=== PATIENT | male | born 1955 | race Caucasian/White ===

== ENCOUNTER 2018-06-06 06:55 | Day surgery (SDC) | payer BC ==
[2018-06-06] MEDS ORDERED: FAMOTIDINE 20 MG TAB PO (07:00)
[2018-06-06] MEDS ORDERED: DIAZEPAM 5 MG TAB PO (07:00)
[2018-06-06] MEDS ORDERED: DIPHENHYDRAMINE 50 MG CAP PO (07:00)
[2018-06-06] MEDS ORDERED: SOD CHLORIDE 0.45% 1,000 ML IV (07:00)
[2018-06-06 08:47] LABS: ADD MAN DIFF? NO
[2018-06-06 08:49] LABS: BASOPHILS % 0.3 % (0.0-2.0); EOSINOPHILS # 0.1 10^3/ul (0.0-0.5); EOSINOPHILS % 1.3 % (0.0-7.0); HEMATOCRIT 33.3 % (42.0-52.0); HEMOGLOBIN 9.9 g/dl (14.0-18.0); LYMPHOCYTES # 1.2 10^3/ul (0.8-2.9); LYMPHOCYTES % 16.9 % (15.0-51.0); MEAN CORPUSCULAR HEMOGLOBIN 21.5 pg (29.0-33.0); MEAN CORPUSCULAR HGB CONC 29.7 g/dl (32.0-37.0); MEAN CORPUSCULAR VOLUME 72.2 fl (82.0-101.0); MEAN PLATELET VOLUME 11.2 fl (7.4-10.4); MONOCYTE # 0.5 10^3/ul (0.3-0.9); MONOCYTES % 7.7 % (0.0-11.0); NEUTROPHIL # 5.1 10^3/ul (1.6-7.5); NEUTROPHILS % 73.5 % (39.0-77.0); PLATELET COUNT 103 10^3/UL (140-415); RED BLOOD COUNT 4.61 10^6/ul (4.70-6.10); RED CELL DISTRIBUTION WIDTH 15.8 % (11.5-14.5)
[2018-06-06] MEDS ORDERED: IODIXANOL LOCM 100 ML BTL (08:50)
[2018-06-06] MEDS ORDERED: LIDOCAINE 1% (MDV) 20 ML INJ ×2 (08:50→09:50)
[2018-06-06 09:06] LABS: HOLD TRANSMISSIONS 1
[2018-06-06 09:22] LABS: ANION GAP 14 (8-16); BLOOD UREA NITROGEN 14 mg/dl (7-20); CALCIUM 8.8 mg/dl (8.4-10.2); CARBON DIOXIDE 26 mmol/L (21-31); CHLORIDE 106 mmol/L (97-110); CHOL/HDL RATIO 6.6 RATIO; CHOLESTEROL 180 mg/dl (100-200); CREATININE 0.99 mg/dl (0.61-1.24); GLUCOSE 108 mg/dl (70-220); HDL CHOLESTEROL 27 mg/dl (30-78); LDL CHOLESTEROL,CALCULATED 121 mg/dl; SODIUM 142 mmol/L (135-144); TRIGLYCERIDES 160 mg/dl (0-149)
[2018-06-06] MEDS ORDERED: FENTAnyl 50 MCG/ML VIAL (09:34)
[2018-06-06] MEDS ORDERED: MIDAZOLAM 1 MG/ML 2 ML INJ (09:34)
[2018-06-06 09:39] LABS: INR 0.93; PROTIME 12.5 Sec (11.9-14.9)
[2018-06-06 09:40] LABS: PARTIAL THROMBOPLASTIN TIME 33.1 Sec (25.0-35.0)
[2018-06-06] MEDS ORDERED: ACETAMINOPHEN 325 MG TAB PO (10:30)
[2018-06-06] MEDS ORDERED: AL HYDROX/MG HYDROX/SIMETH 30 ML CUP PO (10:30)
[2018-06-06] MEDS ORDERED: morphine 2 MG INJ IV (10:30)
[2018-06-06] MEDS: SOD CHLORIDE 0.9% 1,000 ML IV (11:00)
== END 2018-06-06 16:16 | disposition home or self-care (01) ==
LOC: SDS 06:55
DX: I25.709 Atherosclerosis of coronary artery bypass graft(s), unspecified, with unspecified angina pectoris (principal); I34.0 Nonrheumatic mitral (valve) insufficiency; I10 Essential (primary) hypertension; I25.2 Old myocardial infarction; R94.39 Abnormal result of other cardiovascular function study
CPT/HCPCS: 71045; 80048; 80061; 82962; 85025; 85610; 85730; 93005; 93459

== ENCOUNTER 2018-08-27 13:10 | Day surgery (SDC) | payer BC ==
[2018-08-27] MEDS ORDERED: DEXTROSE 50% 50 ML SYRINGE (14:09)
[2018-08-27] MEDS ORDERED: PROPOFOL 20 ML (14:20)
[2018-08-27] MEDS ORDERED: FENTAnyl 50 MCG/ML VIAL (14:20)
== END 2018-08-27 17:08 | disposition home or self-care (01) ==
LOC: GIL 13:10
DX: K51.90 Ulcerative colitis, unspecified, without complications (principal); K29.30 Chronic superficial gastritis without bleeding; D12.5 Benign neoplasm of sigmoid colon; K64.8 Other hemorrhoids; K31.84 Gastroparesis; I10 Essential (primary) hypertension; E11.9 Type 2 diabetes mellitus without complications
CPT/HCPCS: 43239; 82962; 88305; 88312

== ENCOUNTER 2018-11-11 22:43 | Inpatient (IN) | payer BC ==
[2018-11-12] MEDS ORDERED: ACETAMINOPHEN 325 MG TAB PO
[2018-11-12] MEDS ORDERED: HYDROCODONE/APAP (5/325) TAB PO
[2018-11-12] MEDS ORDERED: ONDANSETRON 4 MG INJ IV
[2018-11-12] MEDS ORDERED: NACL 0.9% 3 ML SYG IV
[2018-11-12] MEDS: morphine 4 MG/ML VIAL IV (00:27)
[2018-11-12] MEDS ORDERED: DEXTROSE 50% 50 ML SYRINGE IV ×2 (00:30)
[2018-11-12] MEDS ORDERED: GLUCAGON 1 MG INJ IM (00:30)
[2018-11-12] MEDS ORDERED: GLUCOSE GEL 15 GRAM TUBE PO ×2 (00:30)
[2018-11-12] MEDS ORDERED: GLUCOSE GEL 15 GRAM TUBE BUCCAL (00:30)
[2018-11-12 01:02] LABS: ADD MAN DIFF? NO
[2018-11-12 01:06] LABS: BASOPHILS % 0.5 % (0.0-2.0); EOSINOPHILS # 0.1 10^3/ul (0.0-0.5); EOSINOPHILS % 1.4 % (0.0-7.0); HEMATOCRIT 32.8 % (42.0-52.0); HEMOGLOBIN 10.2 g/dl (14.0-18.0); LYMPHOCYTES # 1.5 10^3/ul (0.8-2.9); LYMPHOCYTES % 22.2 % (15.0-51.0); MEAN CORPUSCULAR HEMOGLOBIN 22.1 pg (29.0-33.0); MEAN CORPUSCULAR HGB CONC 31.1 g/dl (32.0-37.0); MEAN CORPUSCULAR VOLUME 71.1 fl (82.0-101.0); MEAN PLATELET VOLUME 10.5 fl (7.4-10.4); MONOCYTE # 0.8 10^3/ul (0.3-0.9); NEUTROPHIL # 4.1 10^3/ul (1.6-7.5); NEUTROPHILS % 62.7 % (39.0-77.0); PLATELET COUNT 101 10^3/UL (140-415); POSITIVE DIFF @See below; RED BLOOD COUNT 4.61 10^6/ul (4.70-6.10); RED CELL DISTRIBUTION WIDTH 16.7 % (11.5-14.5)
[2018-11-12 01:06] LABS: WHITE BLOOD COUNT 6.5 10^3/ul (4.8-10.8)
[2018-11-12 01:26] LABS: ALANINE AMINOTRANSFERASE 17 IU/L (13-69); ALBUMIN 3.4 g/dl (3.3-4.9); ALKALINE PHOSPHATASE 108 IU/L (42-121); ANION GAP 13 (5-13); ASPARTATE AMINO TRANSFERASE 14 IU/L (15-46); BILIRUBIN,INDIRECT 0.2 mg/dl (0-1.1); BILIRUBIN,TOTAL 0.2 mg/dl (0.2-1.3); BLOOD UREA NITROGEN 14 mg/dl (7-20); CALCIUM 8.4 mg/dl (8.4-10.2); CARBON DIOXIDE 20 mmol/L (21-31); CHLORIDE 103 mmol/L (97-110); CREATININE 0.77 mg/dl (0.61-1.24); Estimated GFR > 60 mL/min (>60); GLUCOSE 89 mg/dl (70-220); LIPASE 156 U/L (23-300); POTASSIUM 3.2 mmol/L (3.5-5.1); SODIUM 136 mmol/L (135-144); TOTAL PROTEIN 6.8 g/dl (6.1-8.1)
[2018-11-12 01:33] LABS: HEMOGLOBIN A1C 6.1 % (0-5.9)
[2018-11-12] MEDS: ACCU-CHEK XX (01:47)
[2018-11-12] MEDS: POTASSIUM CHLORIDE (SR) 20 MEQ TAB PO (02:50)
[2018-11-12] MEDS: INSULIN ASPART [NOVOLOG] 3 ML PEN SC ×4 (08:00→21:34)
[2018-11-12] MEDS: AMLODIPINE 2.5 MG TAB PO (08:37)
[2018-11-12] MEDS: ISOSORBIDE MONONITRATE 20 MG TAB PO (08:37)
[2018-11-12] MEDS: METOPROLOL (XL) 100 MG TAB PO (08:38)
[2018-11-12] MEDS: ASPIRIN (EC) 81 MG TAB PO (08:38)
[2018-11-12] MEDS: GEMFIBROZIL 600 MG TAB PO ×2 (08:38→21:25)
[2018-11-12] MEDS ORDERED: FAMOTIDINE 20 MG INJ IV (09:00)
[2018-11-12] MEDS: METHYLPREDNISOLONE 40 MG INJ IV ×2 (13:23→21:26)
[2018-11-12] MEDS: MESALAMINE (EC) 400 MG CAP PO ×2 (16:28→21:25)
[2018-11-12] MEDS: PANTOPRAZOLE (EC) 40 MG TAB PO (17:20)
[2018-11-12] MEDS: ATORVASTATIN 20 MG TAB PO (21:25)
[2018-11-12] MEDS: HYDROCODONE/APAP (5/325) TAB PO (22:52)
[2018-11-13] MEDS: ACCU-CHEK XX (02:22)
[2018-11-13 05:26] LABS: HEMATOCRIT 31.4 % (42.0-52.0); HEMOGLOBIN 9.7 g/dl (14.0-18.0); MEAN CORPUSCULAR HEMOGLOBIN 21.8 pg (29.0-33.0); MEAN CORPUSCULAR HGB CONC 30.9 g/dl (32.0-37.0); MEAN CORPUSCULAR VOLUME 70.6 fl (82.0-101.0); MEAN PLATELET VOLUME 10.4 fl (7.4-10.4); PLATELET COUNT 229 10^3/UL (140-415); POSITIVE DIFF @See below; RED BLOOD COUNT 4.45 10^6/ul (4.70-6.10); RED CELL DISTRIBUTION WIDTH 17.1 % (11.5-14.5)
[2018-11-13 05:26] LABS: WHITE BLOOD COUNT 5.9 10^3/ul (4.8-10.8)
[2018-11-13 05:31] LABS: ADD MAN DIFF? YES
[2018-11-13 05:45] LABS: IRON 20 ug/dl (35-150)
[2018-11-13 05:50] LABS: PHOSPHORUS 2.7 mg/dl (2.5-4.9)
[2018-11-13 05:50] LABS: MAGNESIUM 1.8 mg/dl (1.7-2.5)
[2018-11-13 05:55] LABS: % IRON SATURATION 7 % SAT (22-52); TOTAL IRON BINDING CAPACITY 299 ug/dl (241-421)
[2018-11-13] MEDS: METHYLPREDNISOLONE 40 MG INJ IV ×3 (06:01→21:40)
[2018-11-13] MEDS: PANTOPRAZOLE (EC) 40 MG TAB PO ×2 (06:04→17:23)
[2018-11-13 06:11] LABS: ALANINE AMINOTRANSFERASE 18 IU/L (13-69); ALBUMIN 3.4 g/dl (3.3-4.9); ALBUMIN/GLOBULIN RATIO 1.03; ALKALINE PHOSPHATASE 110 IU/L (42-121); ANION GAP 9 (5-13); ASPARTATE AMINO TRANSFERASE 15 IU/L (15-46); BLOOD UREA NITROGEN 10 mg/dl (7-20); CARBON DIOXIDE 23 mmol/L (21-31); CHLORIDE 106 mmol/L (97-110); CREATININE 0.79 mg/dl (0.61-1.24); Estimated GFR > 60 mL/min (>60); GLUCOSE 185 mg/dl (70-220); POTASSIUM 4.2 mmol/L (3.5-5.1); SODIUM 138 mmol/L (135-144); TOTAL PROTEIN 6.7 g/dl (6.1-8.1)
[2018-11-13 06:54] LABS: ERYTHROCYTE SEDIMENTATION RATE 40 mm/Hr (0-20)
[2018-11-13 07:14] LABS: ANISOCYTOSIS 1+ (0-0); BAND NEUTROPHILS % (M) 18 % (0-4); LYMPHOCYTES #M 0.7 10^3/ul (0.8-2.9); LYMPHOCYTES % (M) 12 % (15-51); MICROCYTOSIS 1+ (0-0); MONOCYTES % (M) 1 % (0-11); MYELOCYTES % (M) 1 % (0-0); OVALOCYTES 1+ (0-0); PLATELET ESTIMATE NORMAL; POIKILOCYTOSIS 2+ (0-0); POLYCHROMASIA 1+ (0-0); REACTIVE LYMPHOCYTES #M 0.2 10^3/ul (0.0-0.0); REACTIVE LYMPHOCYTES% (M) 5 % (0-0); SEG NEUT #M 3.8 10^3/ul (1.6-7.5); SEGMENTED NEUTROPHILS (M) % 63 % (39-77); SMUDGE%M 11 % (0-0); TOXIC GRANULATION 1+ (0-0)
[2018-11-13 07:24] LABS: C-REACTIVE PROTEIN 6.8 mg/dl (0.0-0.9)
[2018-11-13 07:51] LABS: CARCINOEMBRYONIC ANTIGEN 2.2 ng/ml (0.0-5.0)
[2018-11-13] MEDS: INSULIN ASPART [NOVOLOG] 3 ML PEN SC ×4 (08:02→21:44)
[2018-11-13] MEDS: MESALAMINE (EC) 400 MG CAP PO ×3 (08:43→21:39)
[2018-11-13] MEDS: AMLODIPINE 2.5 MG TAB PO (08:44)
[2018-11-13] MEDS: ISOSORBIDE MONONITRATE 20 MG TAB PO (08:45)
[2018-11-13] MEDS: METOPROLOL (XL) 100 MG TAB PO (08:45)
[2018-11-13] MEDS: GEMFIBROZIL 600 MG TAB PO ×2 (08:45→21:40)
[2018-11-13] MEDS: ASPIRIN (EC) 81 MG TAB PO (08:45)
[2018-11-13] MEDS: ATORVASTATIN 20 MG TAB PO (21:40)
[2018-11-13] MEDS: HYDROCODONE/APAP (5/325) TAB PO (21:41)
[2018-11-13] MEDS: traZODone 50 MG TAB PO (22:37)
[2018-11-14] MEDS: ACCU-CHEK XX (02:00)
[2018-11-14 05:18] LABS: ADD MAN DIFF? NO
[2018-11-14 05:21] LABS: WHITE BLOOD COUNT 13.1 10^3/ul (4.8-10.8)
[2018-11-14 05:21] LABS: ABNORMAL IP MESSAGE 1; BASOPHILS % 0.2 % (0.0-2.0); HEMATOCRIT 30.5 % (42.0-52.0); HEMOGLOBIN 9.5 g/dl (14.0-18.0); LYMPHOCYTES # 1.2 10^3/ul (0.8-2.9); LYMPHOCYTES % 9.1 % (15.0-51.0); MEAN CORPUSCULAR HGB CONC 31.1 g/dl (32.0-37.0); MEAN CORPUSCULAR VOLUME 70.6 fl (82.0-101.0); MONOCYTE # 0.4 10^3/ul (0.3-0.9); MONOCYTES % 3.1 % (0.0-11.0); NEUTROPHIL # 11.3 10^3/ul (1.6-7.5); NEUTROPHILS % 86.2 % (39.0-77.0); PLATELET COUNT 134 10^3/UL (140-415); POSITIVE DIFF @See below; RED BLOOD COUNT 4.32 10^6/ul (4.70-6.10); RED CELL DISTRIBUTION WIDTH 17.2 % (11.5-14.5)
[2018-11-14 05:42] LABS: PHOSPHORUS 3.8 mg/dl (2.5-4.9)
[2018-11-14 06:05] LABS: ANION GAP 10 (5-13); BLOOD UREA NITROGEN 16 mg/dl (7-20); CALCIUM 9.1 mg/dl (8.4-10.2); CARBON DIOXIDE 25 mmol/L (21-31); CHLORIDE 104 mmol/L (97-110); CREATININE 0.87 mg/dl (0.61-1.24); Estimated GFR > 60 mL/min (>60); GLUCOSE 169 mg/dl (70-220); POTASSIUM 4.6 mmol/L (3.5-5.1); SODIUM 139 mmol/L (135-144)
[2018-11-14] MEDS: PANTOPRAZOLE (EC) 40 MG TAB PO ×2 (06:52→18:05)
[2018-11-14] MEDS: METHYLPREDNISOLONE 40 MG INJ IV ×2 (06:52→14:35)
[2018-11-14] MEDS: ASPIRIN (EC) 81 MG TAB PO (08:31)
[2018-11-14] MEDS: MESALAMINE (EC) 400 MG CAP PO ×2 (08:31→12:53)
[2018-11-14] MEDS: GEMFIBROZIL 600 MG TAB PO (08:31)
[2018-11-14] MEDS: INSULIN ASPART [NOVOLOG] 3 ML PEN SC ×3 (08:40→17:58)
[2018-11-14] MEDS: METOPROLOL (XL) 100 MG TAB PO ×2 (09:00→14:35)
[2018-11-14] MEDS: AMLODIPINE 2.5 MG TAB PO (10:06)
[2018-11-14 11:04] LABS: C-REACTIVE PROTEIN 2.2 mg/dl (0.0-0.9)
[2018-11-14] MEDS: ISOSORBIDE MONONITRATE 20 MG TAB PO (14:35)
== END 2018-11-14 18:25 | disposition home or self-care (01) | DRG 387 ==
LOC: 6WM 22:43 → 2NE 11-13 23:04
DX: K51.90 Ulcerative colitis, unspecified, without complications (principal); D64.9 Anemia, unspecified; E11.9 Type 2 diabetes mellitus without complications; I10 Essential (primary) hypertension; E78.5 Hyperlipidemia, unspecified; I25.10 Atherosclerotic heart disease of native coronary artery without angina pectoris; K64.9 Unspecified hemorrhoids; Z79.84 Long term (current) use of oral hypoglycemic drugs; Z79.82 Long term (current) use of aspirin; Z87.891 Personal history of nicotine dependence; Z95.1 Presence of aortocoronary bypass graft
CPT/HCPCS: 80048; 80053; 82378; 82728; 82962; 83036; 83540; 83690; 83735; 84100; 85025; 85651; 86140; 87045; 87075; 87081

== ENCOUNTER 2019-01-10 20:50 | Emergency (ER) | payer BC ==
[2019-01-10 22:50] LABS: ADD MAN DIFF? NO
[2019-01-10 22:52] LABS: WHITE BLOOD COUNT 12.8 10^3/ul (4.8-10.8)
[2019-01-10 22:52] LABS: BASOPHIL # 0.1 10^3/ul (0.0-0.1); BASOPHILS % 0.5 % (0.0-2.0); EOSINOPHILS % 0.2 % (0.0-7.0); HEMATOCRIT 39.3 % (42.0-52.0); HEMOGLOBIN 11.8 g/dl (14.0-18.0); LYMPHOCYTES # 1.2 10^3/ul (0.8-2.9); LYMPHOCYTES % 9.6 % (15.0-51.0); MEAN CORPUSCULAR HEMOGLOBIN 22.6 pg (29.0-33.0); MEAN CORPUSCULAR VOLUME 75.3 fl (82.0-101.0); MEAN PLATELET VOLUME 9.5 fl (7.4-10.4); MONOCYTE # 0.9 10^3/ul (0.3-0.9); MONOCYTES % 6.7 % (0.0-11.0); NEUTROPHIL # 10.5 10^3/ul (1.6-7.5); NEUTROPHILS % 82.3 % (39.0-77.0); PLATELET COUNT 424 10^3/UL (140-415); RED BLOOD COUNT 5.22 10^6/ul (4.70-6.10); RED CELL DISTRIBUTION WIDTH 18.2 % (11.5-14.5)
[2019-01-10] MEDS: KETOROLAC 15 MG INJ IV (22:54)
[2019-01-10] MEDS: SOD CHLORIDE 0.9% 1,000 ML IV (22:54)
[2019-01-10] MEDS: ONDANSETRON 4 MG INJ IV (22:54)
[2019-01-10 23:11] LABS: ALANINE AMINOTRANSFERASE 8 IU/L (13-69); ALBUMIN 3.7 g/dl (3.3-4.9); ALBUMIN/GLOBULIN RATIO 1.02; ALKALINE PHOSPHATASE 96 IU/L (42-121); ANION GAP 15 (5-13); ASPARTATE AMINO TRANSFERASE 14 IU/L (15-46); BILIRUBIN,INDIRECT 0.2 mg/dl (0-1.1); BILIRUBIN,TOTAL 0.2 mg/dl (0.2-1.3); BLOOD UREA NITROGEN 18 mg/dl (7-20); CALCIUM 9.3 mg/dl (8.4-10.2); CARBON DIOXIDE 26 mmol/L (21-31); CHLORIDE 102 mmol/L (97-110); CREATININE 1.28 mg/dl (0.61-1.24); Estimated GFR 57 mL/min (>60); GLUCOSE 150 mg/dl (70-220); LIPASE 25 U/L (23-300); POTASSIUM 4.3 mmol/L (3.5-5.1); SODIUM 143 mmol/L (135-144); TOTAL PROTEIN 7.3 g/dl (6.1-8.1)
[2019-01-10] MEDS: DICYCLOMINE 20 MG INJ IM (23:28)
== END 2019-01-11 01:40 | disposition home or self-care (01) ==
LOC: E/R 01-11 01:40
DX: K51.90 Ulcerative colitis, unspecified, without complications (principal); I10 Essential (primary) hypertension; E11.9 Type 2 diabetes mellitus without complications; Z79.4 Long term (current) use of insulin; Z79.82 Long term (current) use of aspirin
CPT/HCPCS: 36415; 74176; 80053; 83690; 85025; 96372; 96374; 96375; 99285-25

== ENCOUNTER 2019-01-26 13:39 | Inpatient (IN) | payer BC ==
[2019-01-26] MEDS: SOD CHLORIDE 0.9% 1,000 ML IV ×3 (14:29→18:13)
[2019-01-26] MEDS: ONDANSETRON 4 MG INJ IV (14:29)
[2019-01-26] MEDS: METHYLPREDNISOLONE 125 MG INJ IV (14:29)
[2019-01-26] MEDS: HYDROmorphONE 1 MG/ML SYG IV (14:29)
[2019-01-26 14:35] LABS: WHITE BLOOD COUNT 10.7 10^3/ul (4.8-10.8)
[2019-01-26 14:35] LABS: HEMATOCRIT 37.7 % (42.0-52.0); HEMOGLOBIN 11.5 g/dl (14.0-18.0); MEAN CORPUSCULAR HEMOGLOBIN 22.3 pg (29.0-33.0); MEAN CORPUSCULAR HGB CONC 30.5 g/dl (32.0-37.0); MEAN CORPUSCULAR VOLUME 73.1 fl (82.0-101.0); MEAN PLATELET VOLUME 8.6 fl (7.4-10.4); PLATELET COUNT 563 10^3/UL (140-415); POSITIVE DIFF @See below; RED BLOOD COUNT 5.16 10^6/ul (4.70-6.10); RED CELL DISTRIBUTION WIDTH 17.5 % (11.5-14.5)
[2019-01-26 14:40] LABS: ADD MAN DIFF? YES
[2019-01-26 14:51] LABS: ALANINE AMINOTRANSFERASE 8 IU/L (13-69); ALBUMIN 3.4 g/dl (3.3-4.9); ALBUMIN/GLOBULIN RATIO 0.91; ALKALINE PHOSPHATASE 160 IU/L (42-121); ANION GAP 9 (5-13); ASPARTATE AMINO TRANSFERASE 17 IU/L (15-46); BILIRUBIN,INDIRECT 0.3 mg/dl (0-1.1); BILIRUBIN,TOTAL 0.3 mg/dl (0.2-1.3); BLOOD UREA NITROGEN 16 mg/dl (7-20); CALCIUM 9.2 mg/dl (8.4-10.2); CARBON DIOXIDE 29 mmol/L (21-31); CHLORIDE 99 mmol/L (97-110); CREATININE 1.08 mg/dl (0.61-1.24); Estimated GFR > 60 mL/min (>60); GLUCOSE 139 mg/dl (70-220); LIPASE 20 U/L (23-300); POTASSIUM 3.8 mmol/L (3.5-5.1); SODIUM 137 mmol/L (135-144); TOTAL PROTEIN 7.1 g/dl (6.1-8.1)
[2019-01-26] MEDS: SOD CHLORIDE 0.9% 100 ML (15:06)
[2019-01-26] MEDS: IOHEXOL 300MG/ML 150 ML BTL (15:07)
[2019-01-26 15:48] LABS: ANISOCYTOSIS 1+ (0-0); BAND NEUTROPHILS #M 2.7 10^3/ul (0.0-0.6); BAND NEUTROPHILS % (M) 26 % (0-4); BASOPHIL #M 0.2 10^3/ul (0.0-0.0); BASOPHILS % (M) 2 % (0-2); EOSINOPHILS % (M) 1 % (0-7); GIANT THROMBO% (M) 1 % (0-0); LYMPHOCYTES #M 2.1 10^3/ul (0.8-2.9); LYMPHOCYTES % (M) 20 % (15-51); MICROCYTOSIS 1+ (0-0); MONOCYTE #M 0.5 10^3/ul (0.3-0.9); MONOCYTES % (M) 5 % (0-11); PLATELET ESTIMATE INCREASED; POIKILOCYTOSIS 2+ (0-0); POLYCHROMASIA 3+ (0-0); SEG NEUT #M 5.2 10^3/ul (1.6-7.5); SEGMENTED NEUTROPHILS (M) % 46 % (39-77); SMUDGE%M 6 % (0-0)
[2019-01-26] MEDS ORDERED: ONDANSETRON 4 MG INJ IV ×2 (16:30→17:00)
[2019-01-26] MEDS ORDERED: ACETAMINOPHEN 325 MG TAB PO (16:30)
[2019-01-26] MEDS: ERTAPENEM SODIUM 1 GM in SOD CHLORIDE 0.9% 100 ML IVPB (16:42)
[2019-01-26] MEDS ORDERED: NACL 0.9% 3 ML SYG IV (17:00)
[2019-01-26] MEDS ORDERED: GLUCAGON 1 MG INJ IM (18:00)
[2019-01-26] MEDS ORDERED: GLUCOSE GEL 15 GRAM TUBE PO ×2 (18:00)
[2019-01-26] MEDS ORDERED: DEXTROSE 50% 50 ML SYRINGE IV ×2 (18:00)
[2019-01-26] MEDS ORDERED: GLUCOSE GEL 15 GRAM TUBE BUCCAL (18:00)
[2019-01-26] MEDS: INSULIN ASPART [NOVOLOG] 3 ML PEN SC ×2 (18:05→21:13)
[2019-01-26] MEDS: METHYLPREDNISOLONE 40 MG INJ IV (18:18)
[2019-01-26] MEDS: ATORVASTATIN 20 MG TAB PO (21:13)
[2019-01-26] MEDS: CIPROFLOXACIN 400MG/D5W 200 ML IVPB (21:14)
[2019-01-26] MEDS: GEMFIBROZIL 600 MG TAB PO (22:17)
[2019-01-27] MEDS: ACCU-CHEK XX (02:13)
[2019-01-27] MEDS: METHYLPREDNISOLONE 40 MG INJ IV ×2 (06:07→18:22)
[2019-01-27] MEDS: PANTOPRAZOLE 40 MG INJ IV (06:10)
[2019-01-27] MEDS: ACETAMINOPHEN 325 MG TAB PO (06:11)
[2019-01-27 06:24] LABS: ADD MAN DIFF? NO
[2019-01-27 06:36] LABS: ABNORMAL IP MESSAGE 1; BASOPHILS % 0.2 % (0.0-2.0); HEMATOCRIT 32.2 % (42.0-52.0); HEMOGLOBIN 9.8 g/dl (14.0-18.0); LYMPHOCYTES # 0.5 10^3/ul (0.8-2.9); LYMPHOCYTES % 9.4 % (15.0-51.0); MEAN CORPUSCULAR HEMOGLOBIN 22.7 pg (29.0-33.0); MEAN CORPUSCULAR HGB CONC 30.4 g/dl (32.0-37.0); MEAN CORPUSCULAR VOLUME 74.5 fl (82.0-101.0); MEAN PLATELET VOLUME 9.8 fl (7.4-10.4); MONOCYTE # 0.1 10^3/ul (0.3-0.9); NEUTROPHIL # 4.3 10^3/ul (1.6-7.5); NEUTROPHILS % 87.2 % (39.0-77.0); PLATELET COUNT 328 10^3/UL (140-415); POSITIVE DIFF @See below; RED BLOOD COUNT 4.32 10^6/ul (4.70-6.10); RED CELL DISTRIBUTION WIDTH 17.5 % (11.5-14.5)
[2019-01-27 06:36] LABS: WHITE BLOOD COUNT 4.9 10^3/ul (4.8-10.8)
[2019-01-27 07:01] LABS: ALANINE AMINOTRANSFERASE 15 IU/L (13-69); ALBUMIN 2.7 g/dl (3.3-4.9); ALBUMIN/GLOBULIN RATIO 0.87; ALKALINE PHOSPHATASE 118 IU/L (42-121); ANION GAP 9 (5-13); ASPARTATE AMINO TRANSFERASE 11 IU/L (15-46); BILIRUBIN,INDIRECT 0.1 mg/dl (0-1.1); BILIRUBIN,TOTAL 0.1 mg/dl (0.2-1.3); BLOOD UREA NITROGEN 13 mg/dl (7-20); CALCIUM 8.4 mg/dl (8.4-10.2); CARBON DIOXIDE 27 mmol/L (21-31); CHLORIDE 101 mmol/L (97-110); CHOLESTEROL 118 mg/dl (100-200); CREATININE 0.72 mg/dl (0.61-1.24); Estimated GFR > 60 mL/min (>60); GLUCOSE 176 mg/dl (70-220); HDL CHOLESTEROL 29 mg/dl (30-78); LDL CHOLESTEROL,CALCULATED 70 mg/dl; POTASSIUM 4.6 mmol/L (3.5-5.1); SODIUM 137 mmol/L (135-144); TOTAL PROTEIN 5.8 g/dl (6.1-8.1); TRIGLYCERIDES 96 mg/dl (0-149)
[2019-01-27 07:19] LABS: THYROID STIMULATING HORMONE 0.131 MIU/L (0.465-4.680)
[2019-01-27 08:18] LABS: HEMOGLOBIN A1C 6.8 % (0-5.9)
[2019-01-27] MEDS: SOD CHLORIDE 0.9% 1,000 ML IV ×3 (08:40→23:58)
[2019-01-27] MEDS: INSULIN ASPART [NOVOLOG] 3 ML PEN SC ×4 (08:42→21:00)
[2019-01-27] MEDS: GEMFIBROZIL 600 MG TAB PO ×2 (08:44→21:23)
[2019-01-27] MEDS: AMLODIPINE 2.5 MG TAB PO (08:44)
[2019-01-27] MEDS: METOPROLOL (XL) 100 MG TAB PO (08:44)
[2019-01-27] MEDS: ISOSORBIDE MONONITRATE 20 MG TAB PO (08:45)
[2019-01-27] MEDS: CIPROFLOXACIN 400MG/D5W 200 ML IVPB ×2 (08:57→21:21)
[2019-01-27] MEDS: MESALAMINE (EC) 400 MG CAP PO ×3 (10:19→21:24)
[2019-01-27] MEDS: HYDROCODONE/APAP (5/325) TAB PO (15:47)
[2019-01-27] MEDS: ATORVASTATIN 20 MG TAB PO (21:23)
[2019-01-27] MEDS: HYOSCYAMINE 0.125 MG SUBL TAB SL (23:52)
[2019-01-28] MEDS: ACCU-CHEK XX (02:00)
[2019-01-28] MEDS ORDERED: VANCOMYCIN IV PER PHARMACY XX (05:00)
[2019-01-28] MEDS: PANTOPRAZOLE 40 MG INJ IV (05:26)
[2019-01-28] MEDS: METHYLPREDNISOLONE 40 MG INJ IV ×2 (05:28→18:23)
[2019-01-28] MEDS: INSULIN ASPART [NOVOLOG] 3 ML PEN SC ×4 (08:00→20:58)
[2019-01-28] MEDS: CIPROFLOXACIN 400MG/D5W 200 ML IVPB ×2 (08:28→23:21)
[2019-01-28] MEDS: ISOSORBIDE MONONITRATE 20 MG TAB PO (08:30)
[2019-01-28] MEDS: MESALAMINE (EC) 400 MG CAP PO ×3 (08:30→20:48)
[2019-01-28] MEDS: AMLODIPINE 2.5 MG TAB PO (08:31)
[2019-01-28] MEDS: GEMFIBROZIL 600 MG TAB PO ×2 (08:34→20:48)
[2019-01-28] MEDS: PREDNISOLONE ACET 1% 5 ML OPH RIGHT EYE ×2 (08:36→18:23)
[2019-01-28] MEDS: DICLOFENAC 0.1% 2.5 ML OPH RIGHT EYE ×2 (08:37→18:25)
[2019-01-28] MEDS: METOPROLOL (XL) 100 MG TAB PO (09:00)
[2019-01-28] MEDS: VANCOMYCIN HCL 1.5 GM in SOD CHLORIDE 0.9% 250 ML IVPB (09:46)
[2019-01-28 12:19] LABS: C-REACTIVE PROTEIN 4.3 mg/dl (0.0-0.9)
[2019-01-28] MEDS: [UNRECOGNIZED DRUG - OTHER] LEFT EYE (12:49)
[2019-01-28 12:56] LABS: ERYTHROCYTE SEDIMENTATION RATE 47 mm/Hr (0-20)
[2019-01-28] MEDS: SOD CHLORIDE 0.9% 1,000 ML IV (17:38)
[2019-01-28] MEDS ORDERED: VANCOMYCIN 1 GM 250 ML IVPB (19:00)
[2019-01-28] MEDS: ATORVASTATIN 20 MG TAB PO (20:48)
[2019-01-28] MEDS: MESALAMINE 4 GM/60 ML ENEMA PR (21:00)
[2019-01-28] MEDS: VANCOMYCIN 1 GM 250 ML IVPB (21:14)
[2019-01-29] MEDS: DICLOFENAC 0.1% 2.5 ML OPH RIGHT EYE ×4 (00:27→18:10)
[2019-01-29] MEDS: PREDNISOLONE ACET 1% 5 ML OPH RIGHT EYE ×4 (00:29→18:09)
[2019-01-29] MEDS: ACCU-CHEK XX (02:00)
[2019-01-29] MEDS: SOD CHLORIDE 0.9% 1,000 ML IV ×2 (06:03→20:11)
[2019-01-29] MEDS: METHYLPREDNISOLONE 40 MG INJ IV ×2 (06:04→19:37)
[2019-01-29] MEDS: PANTOPRAZOLE 40 MG INJ IV (06:04)
[2019-01-29 06:10] LABS: ADD MAN DIFF? NO
[2019-01-29 06:18] LABS: ABNORMAL IP MESSAGE 1; BASOPHILS % 0.2 % (0.0-2.0); HEMATOCRIT 30.3 % (42.0-52.0); HEMOGLOBIN 9.3 g/dl (14.0-18.0); LYMPHOCYTES # 0.4 10^3/ul (0.8-2.9); MEAN CORPUSCULAR HEMOGLOBIN 22.5 pg (29.0-33.0); MEAN CORPUSCULAR HGB CONC 30.7 g/dl (32.0-37.0); MEAN CORPUSCULAR VOLUME 73.2 fl (82.0-101.0); MEAN PLATELET VOLUME 9.4 fl (7.4-10.4); MONOCYTE # 0.1 10^3/ul (0.3-0.9); MONOCYTES % 2.4 % (0.0-11.0); NEUTROPHIL # 4.7 10^3/ul (1.6-7.5); NEUTROPHILS % 87.4 % (39.0-77.0); PLATELET COUNT 361 10^3/UL (140-415); POSITIVE DIFF @See below; RED BLOOD COUNT 4.14 10^6/ul (4.70-6.10); RED CELL DISTRIBUTION WIDTH 17.8 % (11.5-14.5)
[2019-01-29 06:18] LABS: WHITE BLOOD COUNT 5.4 10^3/ul (4.8-10.8)
[2019-01-29 06:47] LABS: ALANINE AMINOTRANSFERASE 15 IU/L (13-69); ALBUMIN 2.5 g/dl (3.3-4.9); ALBUMIN/GLOBULIN RATIO 0.89; ALKALINE PHOSPHATASE 113 IU/L (42-121); ANION GAP 7 (5-13); ASPARTATE AMINO TRANSFERASE 12 IU/L (15-46); BILIRUBIN,INDIRECT 0.2 mg/dl (0-1.1); BILIRUBIN,TOTAL 0.2 mg/dl (0.2-1.3); BLOOD UREA NITROGEN 7 mg/dl (7-20); C-REACTIVE PROTEIN 5.5 mg/dl (0.0-0.9); CALCIUM 8.3 mg/dl (8.4-10.2); CARBON DIOXIDE 26 mmol/L (21-31); CHLORIDE 104 mmol/L (97-110); CREATININE 0.74 mg/dl (0.61-1.24); Estimated GFR > 60 mL/min (>60); GLUCOSE 152 mg/dl (70-220); POTASSIUM 4.2 mmol/L (3.5-5.1); SODIUM 137 mmol/L (135-144); TOTAL PROTEIN 5.3 g/dl (6.1-8.1)
[2019-01-29] MEDS: INSULIN ASPART [NOVOLOG] 3 ML PEN SC ×4 (08:00→20:52)
[2019-01-29] MEDS: CIPROFLOXACIN 400MG/D5W 200 ML IVPB ×2 (09:26→21:15)
[2019-01-29] MEDS: MESALAMINE (EC) 400 MG CAP PO ×3 (09:33→20:53)
[2019-01-29] MEDS: GEMFIBROZIL 600 MG TAB PO ×3 (09:34→21:00)
[2019-01-29] MEDS: ISOSORBIDE MONONITRATE 20 MG TAB PO (09:35)
[2019-01-29] MEDS: AMLODIPINE 2.5 MG TAB PO (09:35)
[2019-01-29] MEDS: MESALAMINE 4 GM/60 ML ENEMA PR (09:36)
[2019-01-29] MEDS: METOPROLOL (XL) 100 MG TAB PO (09:36)
[2019-01-29 10:07] LABS: ANISOCYTOSIS 2+ (0-0); BAND NEUTROPHILS #M 0.6 10^3/ul (0.0-0.6); BAND NEUTROPHILS % (M) 12 % (0-4); BURR CELLS 1+ (0-0); ELLIPTO 1+ (0-0); ERYTHROBLAST% (NRBC) (M) 1 % (0-0); HYPOCHROMASIA 1+ (0-0); LYMPHOCYTES #M 0.2 10^3/ul (0.8-2.9); LYMPHOCYTES % (M) 5 % (15-51); MICROCYTOSIS 2+ (0-0); OVALOCYTES 1+ (0-0); PLATELET ESTIMATE NORMAL; POIKILOCYTOSIS 2+ (0-0); POLYCHROMASIA 3+ (0-0); REACTIVE LYMPHOCYTES% (M) 1 % (0-0); SEG NEUT #M 4.5 10^3/ul (1.6-7.5); SEGMENTED NEUTROPHILS (M) % 82 % (39-77); SMUDGE%M 2 % (0-0); TARGET CELLS 1+ (0-0)
[2019-01-29] MEDS: VANCOMYCIN 1 GM 250 ML IVPB (10:58)
[2019-01-29] MEDS ORDERED: PREDNISOLONE ACET 1% 5 ML OPH LEFT EYE (12:00)
[2019-01-29] MEDS: NEPAFENAC 0.3% LEFT EYE (12:51)
[2019-01-29] MEDS: PREDNISOLONE ACET 1% 5 ML OPH LEFT EYE (12:53)
[2019-01-29] MEDS: ATORVASTATIN 20 MG TAB PO (20:53)
[2019-01-30] MEDS: PREDNISOLONE ACET 1% 5 ML OPH LEFT EYE ×2 (00:04→12:20)
[2019-01-30] MEDS: DICLOFENAC 0.1% 2.5 ML OPH RIGHT EYE ×4 (00:04→17:29)
[2019-01-30] MEDS: PREDNISOLONE ACET 1% 5 ML OPH RIGHT EYE ×4 (00:04→17:28)
[2019-01-30] MEDS: ACCU-CHEK XX (02:00)
[2019-01-30] MEDS: METHYLPREDNISOLONE 40 MG INJ IV (06:06)
[2019-01-30] MEDS: PANTOPRAZOLE 40 MG INJ IV (06:06)
[2019-01-30 07:48] LABS: ADD MAN DIFF? NO
[2019-01-30 07:51] LABS: BASOPHILS % 0.1 % (0.0-2.0); HEMATOCRIT 29.1 % (42.0-52.0); HEMOGLOBIN 8.8 g/dl (14.0-18.0); LYMPHOCYTES # 0.7 10^3/ul (0.8-2.9); LYMPHOCYTES % 10.2 % (15.0-51.0); MEAN CORPUSCULAR HEMOGLOBIN 22.2 pg (29.0-33.0); MEAN CORPUSCULAR HGB CONC 30.2 g/dl (32.0-37.0); MEAN CORPUSCULAR VOLUME 73.5 fl (82.0-101.0); MEAN PLATELET VOLUME 9.2 fl (7.4-10.4); MONOCYTE # 0.3 10^3/ul (0.3-0.9); MONOCYTES % 4.6 % (0.0-11.0); NEUTROPHIL # 5.9 10^3/ul (1.6-7.5); NEUTROPHILS % 81.8 % (39.0-77.0); PLATELET COUNT 392 10^3/UL (140-415); RED BLOOD COUNT 3.96 10^6/ul (4.70-6.10); RED CELL DISTRIBUTION WIDTH 17.9 % (11.5-14.5)
[2019-01-30 07:51] LABS: WHITE BLOOD COUNT 7.2 10^3/ul (4.8-10.8)
[2019-01-30 08:11] LABS: ANION GAP 4 (5-13); BLOOD UREA NITROGEN 10 mg/dl (7-20); CALCIUM 8.1 mg/dl (8.4-10.2); CARBON DIOXIDE 26 mmol/L (21-31); CHLORIDE 107 mmol/L (97-110); CREATININE 0.74 mg/dl (0.61-1.24); Estimated GFR > 60 mL/min (>60); GLUCOSE 145 mg/dl (70-220); SODIUM 137 mmol/L (135-144)
[2019-01-30] MEDS: SOD CHLORIDE 0.9% 1,000 ML IV ×2 (08:13→10:06)
[2019-01-30] MEDS ORDERED: PATIENT'S OWN MEDICATION LEFT EYE (09:00)
[2019-01-30] MEDS: INSULIN ASPART [NOVOLOG] 3 ML PEN SC ×3 (09:07→17:29)
[2019-01-30] MEDS: CIPROFLOXACIN 400MG/D5W 200 ML IVPB (10:00)
[2019-01-30] MEDS: predniSONE 10 MG TAB PO (10:00)
[2019-01-30] MEDS: AMLODIPINE 2.5 MG TAB PO (10:01)
[2019-01-30] MEDS: MESALAMINE (EC) 400 MG CAP PO ×2 (10:01→12:21)
[2019-01-30] MEDS: ISOSORBIDE MONONITRATE 20 MG TAB PO (10:01)
[2019-01-30] MEDS: METOPROLOL (XL) 100 MG TAB PO (10:01)
[2019-01-30] MEDS: NEPAFENAC 0.3% LEFT EYE (10:02)
[2019-01-30] MEDS: MESALAMINE 4 GM/60 ML ENEMA PR (11:56)
== END 2019-01-30 20:30 | disposition home health service (06) | DRG 386 ==
LOC: E/R 13:39 → PP2 16:26
DX: K51.511 Left sided colitis with rectal bleeding (principal); R78.81 Bacteremia; D64.9 Anemia, unspecified; E11.8 Type 2 diabetes mellitus with unspecified complications; I25.10 Atherosclerotic heart disease of native coronary artery without angina pectoris; I10 Essential (primary) hypertension; Z72.0 Tobacco use
CPT/HCPCS: 36415; 74177; 80048; 80053; 80061; 82962; 83036; 83690; 83735; 84100; 84443; 85025; 85651; 86140; 87040-91; 87075; 96374; 96375; 99285-25

== ENCOUNTER 2019-02-17 06:03 | Emergency (ER) | payer BC ==
[2019-02-17] MEDS: SOD CHLORIDE 0.9% 500 ML IV (07:35)
[2019-02-17] MEDS: LIDOCAINE/MYLANTA 40 ML BTL PO (07:35)
[2019-02-17] MEDS: NYSTATIN SUSP 5 ML CUP PO (07:35)
[2019-02-17] MEDS: BELLADONNA/PHENOBARBITAL TAB PO (07:35)
[2019-02-17] MEDS: LIDOCAINE 2% VISC 15 ML CUP PO (07:36)
[2019-02-17 08:15] LABS: ADD MAN DIFF? NO
[2019-02-17 08:19] LABS: ABNORMAL IP MESSAGE 1; BASOPHILS % 0.2 % (0.0-2.0); EOSINOPHILS % 0.2 % (0.0-7.0); HEMATOCRIT 36.2 % (42.0-52.0); HEMOGLOBIN 11.2 g/dl (14.0-18.0); LYMPHOCYTES # 0.6 10^3/ul (0.8-2.9); LYMPHOCYTES % 13.8 % (15.0-51.0); MEAN CORPUSCULAR HGB CONC 30.9 g/dl (32.0-37.0); MEAN CORPUSCULAR VOLUME 74.3 fl (82.0-101.0); MONOCYTE # 0.2 10^3/ul (0.3-0.9); MONOCYTES % 5.2 % (0.0-11.0); NEUTROPHIL # 3.3 10^3/ul (1.6-7.5); NEUTROPHILS % 80.1 % (39.0-77.0); PLATELET COUNT 203 10^3/UL (140-415); POSITIVE DIFF @See below; RED BLOOD COUNT 4.87 10^6/ul (4.70-6.10); RED CELL DISTRIBUTION WIDTH 19.7 % (11.5-14.5)
[2019-02-17 08:19] LABS: WHITE BLOOD COUNT 4.1 10^3/ul (4.8-10.8)
[2019-02-17 08:37] LABS: ALANINE AMINOTRANSFERASE 45 IU/L (13-69); ALBUMIN 2.9 g/dl (3.3-4.9); ALBUMIN/GLOBULIN RATIO 1.07; ALKALINE PHOSPHATASE 108 IU/L (42-121); ANION GAP 8 (5-13); ASPARTATE AMINO TRANSFERASE 22 IU/L (15-46); BILIRUBIN,INDIRECT 0.6 mg/dl (0-1.1); BILIRUBIN,TOTAL 0.6 mg/dl (0.2-1.3); BLOOD UREA NITROGEN 29 mg/dl (7-20); CALCIUM 8.3 mg/dl (8.4-10.2); CARBON DIOXIDE 27 mmol/L (21-31); CHLORIDE 101 mmol/L (97-110); CREATININE 0.67 mg/dl (0.61-1.24); Estimated GFR > 60 mL/min (>60); GLUCOSE 100 mg/dl (70-220); LIPASE 17 U/L (23-300); SODIUM 136 mmol/L (135-144); TOTAL PROTEIN 5.6 g/dl (6.1-8.1)
[2019-02-17 08:38] LABS: INR 0.86; PROTIME 11.8 Sec (11.9-14.9); PT RATIO 0.9
[2019-02-17 08:39] LABS: PARTIAL THROMBOPLASTIN TIME 24.9 Sec (23.0-35.0)
[2019-02-17 08:47] LABS: B-TYPE NATRIURETIC PEPTIDE 279 PG/ML (0-125); TROPONIN-I < 0.012 ng/ml (0.000-0.120)
== END 2019-02-17 10:24 | disposition home or self-care (01) ==
LOC: E/R 06:03
DX: R07.9 Chest pain, unspecified (principal); I10 Essential (primary) hypertension; E86.0 Dehydration; K12.0 Recurrent oral aphthae; E11.9 Type 2 diabetes mellitus without complications; Z79.4 Long term (current) use of insulin; Z79.82 Long term (current) use of aspirin; Z95.1 Presence of aortocoronary bypass graft; Z87.891 Personal history of nicotine dependence
CPT/HCPCS: 71045; 80053; 83690; 83880; 84484; 85025; 85610; 85730; 93005; 99285-25

== ENCOUNTER 2019-03-10 01:28 | Emergency (ER) | payer BC | END 2019-03-10 03:08 | disposition home or self-care (01) | LOC: FTE 03:08 | DX: L29.9 Pruritus, unspecified (principal); I25.10 Atherosclerotic heart disease of native coronary artery without angina pectoris; Z79.4 Long term (current) use of insulin; Z79.82 Long term (current) use of aspirin; Z87.891 Personal history of nicotine dependence; Z95.1 Presence of aortocoronary bypass graft | CPT/HCPCS: 99282; Z7502 ==

== ENCOUNTER 2019-03-22 19:08 | Inpatient (IN) | payer BC ==
[2019-03-22] MEDS ORDERED: NACL 0.9% 3 ML SYG IV (22:30)
[2019-03-22] MEDS ORDERED: HYOSCYAMINE 0.125 MG SUBL TAB SL (22:30)
[2019-03-22] MEDS ORDERED: ACETAMINOPHEN 325 MG TAB PO (22:30)
[2019-03-22] MEDS ORDERED: LIDOCAINE 5% 35 GM OINT TOP (22:30)
[2019-03-22] MEDS ORDERED: ONDANSETRON 4 MG INJ IV (22:30)
[2019-03-22] MEDS ORDERED: HYDROPHILIC BASE 454 GM OINT TOP (22:30)
[2019-03-22] MEDS ORDERED: AL HYDROX/MG HYDROX/SIMETH 30 ML CUP PO (22:30)
[2019-03-22] MEDS ORDERED: DEXTROSE 50% 50 ML SYRINGE IV ×2 (23:30)
[2019-03-22] MEDS ORDERED: GLUCOSE GEL 15 GRAM TUBE PO ×2 (23:30)
[2019-03-22] MEDS ORDERED: AQUAPHOR 52.5 GM OINT TOP (23:30)
[2019-03-22] MEDS ORDERED: GLUCAGON 1 MG INJ IM (23:30)
[2019-03-22] MEDS ORDERED: GLUCOSE GEL 15 GRAM TUBE BUCCAL (23:30)
[2019-03-23] MEDS: METOPROLOL (XL) 100 MG TAB PO ×2 (01:04→08:29)
[2019-03-23] MEDS: AMLODIPINE 2.5 MG TAB PO ×2 (01:04→08:30)
[2019-03-23] MEDS: MESALAMINE (EC) 400 MG CAP PO ×3 (01:05→14:35)
[2019-03-23] MEDS: ACCU-CHEK XX (01:43)
[2019-03-23 06:28] LABS: ADD MAN DIFF? NO
[2019-03-23] MEDS: PANTOPRAZOLE (EC) 40 MG TAB PO (06:32)
[2019-03-23 06:54] LABS: ABNORMAL IP MESSAGE 1; BASOPHIL # 0.1 10^3/ul (0.0-0.1); EOSINOPHILS % 0.1 % (0.0-7.0); HEMATOCRIT 37.2 % (42.0-52.0); HEMOGLOBIN 11.6 g/dl (14.0-18.0); LYMPHOCYTES # 1.2 10^3/ul (0.8-2.9); MEAN CORPUSCULAR HGB CONC 31.2 g/dl (32.0-37.0); MEAN PLATELET VOLUME 9.5 fl (7.4-10.4); MONOCYTE # 0.4 10^3/ul (0.3-0.9); MONOCYTES % 6.3 % (0.0-11.0); NEUTROPHIL # 4.8 10^3/ul (1.6-7.5); NEUTROPHILS % 70.9 % (39.0-77.0); PLATELET COUNT 321 10^3/UL (140-415); POSITIVE DIFF @See below; RED BLOOD COUNT 4.83 10^6/ul (4.70-6.10); RED CELL DISTRIBUTION WIDTH 22.3 % (11.5-14.5)
[2019-03-23 06:54] LABS: WHITE BLOOD COUNT 6.8 10^3/ul (4.8-10.8)
[2019-03-23 06:55] LABS: ALANINE AMINOTRANSFERASE 34 IU/L (13-69); ALBUMIN 2.9 g/dl (3.3-4.9); ALBUMIN/GLOBULIN RATIO 1.03; ALKALINE PHOSPHATASE 99 IU/L (42-121); ANION GAP 5 (5-13); ASPARTATE AMINO TRANSFERASE 24 IU/L (15-46); BILIRUBIN,INDIRECT 0.4 mg/dl (0-1.1); BILIRUBIN,TOTAL 0.4 mg/dl (0.2-1.3); BLOOD UREA NITROGEN 12 mg/dl (7-20); CALCIUM 8.7 mg/dl (8.4-10.2); CARBON DIOXIDE 27 mmol/L (21-31); CHLORIDE 101 mmol/L (97-110); CREATININE 0.61 mg/dl (0.61-1.24); Estimated GFR > 60 mL/min (>60); GLUCOSE 102 mg/dl (70-220); PHOSPHORUS 3.9 mg/dl (2.5-4.9); POTASSIUM 4.4 mmol/L (3.5-5.1); SODIUM 133 mmol/L (135-144); TOTAL PROTEIN 5.7 g/dl (6.1-8.1)
[2019-03-23 07:21] LABS: THYROID STIMULATING HORMONE 0.785 MIU/L (0.465-4.680)
[2019-03-23 07:32] LABS: HEMOGLOBIN A1C 6.8 % (0-5.9)
[2019-03-23] MEDS: INSULIN ASPART [NOVOLOG] 3 ML PEN SC ×2 (07:55→11:50)
[2019-03-23] MEDS: GEMFIBROZIL 600 MG TAB PO (08:29)
[2019-03-23] MEDS: ASPIRIN (EC) 81 MG TAB PO (08:29)
[2019-03-23] MEDS: ISOSORBIDE MONONITRATE 20 MG TAB PO (08:30)
[2019-03-23] MEDS: PREDNISOLONE ACET 1% 5 ML OPH RIGHT EYE (08:31)
[2019-03-23] MEDS: DICLOFENAC 0.1% 2.5 ML OPH RIGHT EYE (08:31)
[2019-03-23] MEDS: INSULIN GLARGINE [LANTus] (100 UNITS/ML) SYG SC (08:44)
[2019-03-23] MEDS ORDERED: NON-FORMULARY/PATIENT OWN MED (Nepafenac (Ilevro) 1 DROP) OP (09:00)
[2019-03-23] MEDS ORDERED: LORATADINE 10 MG TAB PO (09:00)
[2019-03-23] MEDS ORDERED: MESALAMINE (EC) 400 MG CAP PO (09:00)
[2019-03-23] MEDS ORDERED: METOPROLOL (XL) 100 MG TAB PO (09:00)
[2019-03-23] MEDS ORDERED: AMLODIPINE 2.5 MG TAB PO (09:00)
[2019-03-23] MEDS ORDERED: ATORVASTATIN 20 MG TAB PO (21:00)
== END 2019-03-23 17:43 | disposition home health service (06) | DRG 86 ==
LOC: TEL 19:08
PROVIDERS: Internal Medicine
DX: S06.351A Traumatic hemorrhage of left cerebrum with loss of consciousness of 30 minutes or less, initial encounter (principal); B02.8 Zoster with other complications; K51.90 Ulcerative colitis, unspecified, without complications; B02.29 Other postherpetic nervous system involvement; I10 Essential (primary) hypertension; I25.10 Atherosclerotic heart disease of native coronary artery without angina pectoris; E11.40 Type 2 diabetes mellitus with diabetic neuropathy, unspecified; D50.9 Iron deficiency anemia, unspecified; Z95.5 Presence of coronary angioplasty implant and graft; Z95.1 Presence of aortocoronary bypass graft; Z79.4 Long term (current) use of insulin; Z87.891 Personal history of nicotine dependence; W19.XXXA Unspecified fall, initial encounter; Y92.009 Unspecified place in unspecified non-institutional (private) residence as the place of occurrence of the external cause
CPT/HCPCS: 80053; 82962; 83036; 83735; 84100; 84443; 85025; 97161